=== PATIENT | female | born 1990 | race African-American/Black ===

== ENCOUNTER 2016-08-15 00:30 | Emergency (ER) | payer OTHER ==
[2016-08-15 00:48] VITALS: BMI 27.4
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
[2016-08-15 02:47] LABS: BASOPHILS # (AUTO) 0.1 X10^3/uL (0.0-0.1); BASOPHILS % (AUTO) 1.1 % (0.2-1.0); EOSINOPHILS # (AUTO) 0.3 x10^3/uL (0.0-0.2); EOSINOPHILS % (AUTO) 5.7 % (0.9-2.9); HEMATOCRIT 36.2 % (36.0-47.0); HEMOGLOBIN 11.9 g/dL (12.0-16.0); LYMPHOCYTES # (AUTO) 2.8 X10^3/uL (1.3-2.9); LYMPHOCYTES % (AUTO) 58.2 % (21.0-51.0); MEAN CORPUSCULAR HEMOGLOBIN 26.9 pg (27.0-34.0); MEAN CORPUSCULAR HGB CONC 32.9 g/dL (33.0-35.0); MEAN CORPUSCULAR VOLUME 81.8 fL (80.0-100.0); MEAN PLATELET VOLUME 8.9 fL (7.4-11.0); MONOCYTES # (AUTO) 0.4 x10^3/uL (0.3-0.8); MONOCYTES % (AUTO) 8.4 % (0.0-13.0); NEUTROPHILS # (AUTO) 1.3 x10^3/uL (2.2-4.8); NEUTROPHILS % (AUTO) 26.6 % (42.0-75.0); PLATELET COUNT 54 X10^3/uL (150.0-450.0); RED BLOOD COUNT 4.42 X10^6/uL (3.5-5.4); RED CELL DISTRIBUTION WIDTH 13.4 % (11.6-16.5); WHITE BLOOD COUNT 4.8 X10^3/uL (3.6-10.0)
[2016-08-15 02:58] LABS: SERUM PREGNANCY TEST, QUAL NEGATIVE <10 mIU/mL
[2016-08-15 03:01] LABS: SALICYLATE < 2.8 mg/dL (2.8-20)
[2016-08-15 03:07] LABS: ALANINE AMINOTRANSFERASE 21 Units/L (12-78); ALBUMIN 3.6 g/dL (3.4-5.0); ALKALINE PHOSPHATASE 69 Units/L (46-116); ASPARTATE AMINO TRANSFERASE 16 Units/L (15-37); BLOOD ALCOHOL < 3 mg/dL (0-19.9); BLOOD UREA NITROGEN 7 mg/dL (7-18); CALCIUM 9.1 mg/dL (8.5-10.1); CARBON DIOXIDE 31.6 mmol/L (21-32); CHLORIDE 104 mmol/L (98-107); CREATININE 1.09 mg/dL (0.55-1.02); GLUCOSE 83 mg/dL (65-99); SODIUM 142 mmol/L (136-145); TOTAL PROTEIN 7.5 g/dL (6.4-8.2); eGFR BLACK RACES > 60 (>60); eGFR NON BLACK RACES > 60 (>60)
[2016-08-15 03:21] LABS: BILIRUBIN,URINE NEGATIVE (NEGATIVE); BLOOD/HEMOGLOBIN,URINE NEGATIVE (NEGATIVE); GLUCOSE, URINE NEGATIVE (NEGATIVE); KETONES,URINE NEGATIVE (NEGATIVE); LEUKOCYTE ESTERASE ,URINE 2+ (NEGATIVE); NITRITES,URINE NEGATIVE (NEGATIVE); PROTEIN,URINE 1+ (NEGATIVE); UROBILINOGEN,URINE NORMAL (NORMAL)
--- NOTE | 2016-08-15 03:26 | CT ---
CT head without contrast Indication: Fainting. Technique: Axial images from the skullbase to the vertex without contrast. Coronal and sagittal refo rmats provided. Findings: There is no acute intracranial hemorrhage, mass or mass effect. No extra-axial fluid colle ction or abnormal area of hypoattenuation to suggest infarction seen. Review of bone windows shows n o destructive osseous lesion. Paranasal sinuses and mastoid air cells are clear. Impression: No acute intracranial abnormality. Reported By:
[2016-08-15 03:42] LABS: APPEARANCE,URINE SLIGHTLY HAZY (CLEAR); COLOR,URINE YELLOW (YELLOW); RBC,URINE 0-3 /HPF (NEGATIVE)
[2016-08-15 03:43] LABS: BACTERIA,URINE TRACE /HPF (NEGATIVE); SQUAMOUS EPITHELIAL CELL,UR RARE /HPF (NEGATIVE)
[2016-08-15 04:40] VITALS: BP 110/60
== END 2016-08-15 04:38 | disposition home or self-care (01) ==
LOC: ER 00:30
DX: T88.7XXA Unspecified adverse effect of drug or medicament, initial encounter (principal); F14.10 Cocaine abuse, uncomplicated; R78.1 Finding of opiate drug in blood; F19.10 Other psychoactive substance abuse, uncomplicated
CPT/HCPCS: 36415; 70450; 80053; 80307; 80320; 81001; 84703; 85025; 87086; 93005; 93010; 99282; 99283; G0434; G6038; G6039; G6040

== ENCOUNTER 2016-08-22 10:14 | Emergency (ER) | payer OTHER ==
[2016-08-22 10:24] VITALS: BP 103/67; BMI 28.6
--- NOTE | 2016-08-22 10:59 | DR.GENAD ---
HPI - PCP Primary Care Physician: jesus - HPI Comment HPI Comment: PATIENT DEVELOP RASH AND ITCHING IN HER SCALP AFTER USING LYE PRODUCT 2 DAYS AGO. SOME OF THE LESIONS ARE FORMING PUSTULES. - Complaint/Symptoms Chief Complaint Doctors Comments: ALLERGIC REACTION TO LYE PATIENT PUT IN HER HAIR 2 DAYS AGO. Chief Complaint:: patient stated 2 days ago she put hair dye in here hair and and it had lye in it and she is allergic to the lye. - Nurses notes reviewed Nurses Notes Review: Yes - Source History Provided: Patient - Mode of Arrival Mode of Arrival: Ambulatory - Timing Onset of Chief Complaint: 08/20/16 Came on: Suddenly - Duration Duration: Constant Duration: Days - Severity Severity: Moderate PMH - PMH Past Medical History: Yes Past Medical History: Hypertension Past Surgical History: Yes Surgical History: Past Surgical History Comment: head surgery - Family History History of Family Medical Conditions: No Family Medical History: Hypertension - Social History Does patient currently use any type of tobacco product: Yes Have you used tobacco products in the last 12 months: Yes Type of Tobacco Use: Cigarettes How many years tobacco product used: 1 Does any household member use tobacco: No Alcohol Use: None Do you use any recreational Drugs:: Yes (cocaine) Lives With: Family Lives Where: Home - infectious screening In the last 2 months have you had wt loss of >10#?: NO Have you had fever, night sweats or hemotysis?: No Have you traveled outside the country in the last 6 months?: No Isolation: Standard ROS - Review of Systems Constitutional: No Symptoms Reported Eyes: No Symptoms Reported ENTM: No Symptoms Reported Respiratoy: No Symptoms Reported Cardiovascular: No Symptoms Reported Gastrointestinal/Abdominal: No Symptoms Reported Genitourinary: No Symptoms Reported Neurological: No Symptoms Reported Musculoskeletal: No Symptoms Reported Integumentary: Lesions (WITH PUSTULES AND PAPULES ON SCALP.), Itching (SCALP) Hematologic/Lymphatic: No Symptoms Reported Endocrine: No Symptoms Reported All Other Systems: Reviewed and Negative PE - Vital Signs Vitals: Temperature 98.7 F Pulse Rate 100 Respiratory Rate 16 Blood Pressure [Right Arm] 110/60 Blood Pressure [Left Arm] 101/55 Blood Pressure 103/67 O2 Sat by Pulse Oximetry 98 - General Limitations: No Limitations General Appearance: Alert - Head Head Exam: Normal Inspection - Eyes Eye exam: Normal Appearance - ENT ENT Exam: Normal External Ear Exam External Ear Exam: Normal External Inspection TM/Canal Exam: Bilateral Normal Nose Exam: Normal Nose Exam Mouth Exam: Normal Inspection Throat Exam: Normal Inspection - Neck Neck Exam: Trachea Midline - Chest Chest Inspection: Symmetric Chest Wall Rise - Respiratory Respiratory Exam: Normal Lung Sounds Bilat - Cardiovascular Cardiovascular Exam: Regular Rate, Normal Rhythm, Normal Heart Sounds - Abdominal Exam Abdominal Exam: Normal Inspection MDM - Differential Diagnosis Differential Diagnosis: ALLERGIC DERMATITIS, PRURITUS Course - Education/Counseling Education/Counseling: Patient, Education Educated On: Diagnosis, Needs for Follow Up - Diagnosis Discharge Problem: Allergic dermatitis, Pruritus - Discharge Plan Disposition: HOME, SELF-CARE Condition: Stable Prescriptions: Cephalexin [Keflex Cap 500 mg] 500 mg PO TID #21 cap Hydroxyzine Pamoate [Vistaril] 25 mg PO TID #20 cap Methylprednisolone Dosepak 4Mg [MEDROL DOSEPAK (4 mg tab x 21)] 1 shanda PO ONCE # 1 shanda - Follow ups/Referrals Follow ups/Referrals: CHASIDY MORALES [Primary Care Provider] - 3 days - Instructions Instructions: Pruritus, Rash, [id number], Allergies, [id number] Additional Instructions: RETURN TO ED IF WORSE.
== END 2016-08-22 11:37 | disposition home or self-care (01) ==
LOC: ER 10:25
DX: L25.8 Unspecified contact dermatitis due to other agents (principal); L29.8 Other pruritus
CPT/HCPCS: 99281

== ENCOUNTER → 2016-09-16 | Outpatient (CLI) | payer OTHER ==
[2016-08-28 11:04] VITALS: BP 108/54
== END | disposition home or self-care (01) ==
LOC: LAB 09:08
PROVIDERS: ATTEND Internal Medicine
DX: G40.802 Other epilepsy, not intractable, without status epilepticus (principal)
CPT/HCPCS: 36415; 80177

== ENCOUNTER 2017-06-24 12:08 | Emergency (ER) | payer OTHER ==
[2017-06-24 12:15] VITALS: BP 105/55; BMI 23.6
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
[2017-06-24] MEDS ORDERED: TORADOL 60 MG VIAL IM ONE (13:01)
[2017-06-24] MEDS ORDERED: TORADOL 60 MG VIAL ONE (13:03)
== END 2017-06-24 13:22 | disposition home or self-care (01) ==
LOC: ER 12:29
DX: K08.89 Other specified disorders of teeth and supporting structures (principal)
CPT/HCPCS: 96372; 99282; J1885